=== PATIENT | male | born 1995 | race Caucasian/White ===

== ENCOUNTER 2017-04-06 19:11 | Inpatient (IN) | payer BC, OTHER ==
[~2017-04-06] VITALS: Ht 167.6 cm; Wt 81.6 kg
[2017-04-06] MEDS ORDERED: BUPRENORPHINE HCL 2 MG TAB.SUBL SL PRN (21:30)
[2017-04-06] MEDS ORDERED: diphenhydrAMINE 50 MG CAPSULE PO PRN (21:30)
[2017-04-06] MEDS ORDERED: CLONIDINE HCL 0.1 MG TABLET PO PRN (21:30)
[2017-04-06] MEDS ORDERED: MAGNESIUM HYDROXIDE 30 ML LIQUID UDC PO PRN (21:30)
[2017-04-06] MEDS ORDERED: ACETAMINOPHEN 325 MG TABLET PO PRN (21:30)
[2017-04-06] MEDS ORDERED: LORAZEPAM 2 MG/1 ML VIAL IM PRN (21:30)
[2017-04-06] MEDS ORDERED: LORAZEPAM 1 MG TABLET PO PRN ×2 (21:30)
[2017-04-06] MEDS ORDERED: DICYCLOMINE HCL 20 MG TABLET PO PRN (21:30)
[2017-04-06] MEDS ORDERED: MIRALAX 17 GM POWD.PACK PO PRN (21:30)
[2017-04-06] MEDS ORDERED: ONDANSETRON ODT 4 MG TAB.RAPDIS SL PRN (21:30)
[2017-04-06] MEDS ORDERED: LOPERAMIDE HCL 2 MG CAPSULE PO PRN (21:30)
[2017-04-06] MEDS ORDERED: MAG HYDROX/AL HYDROX/SIMETH 30 ML LIQUID UDC PO PRN (21:30)
[2017-04-06] MEDS ORDERED: ONDANSETRON 4 MG/2 ML VIAL IM PRN (21:30)
[2017-04-06 21:52] LABS: BASOPHILS # (AUTO) 0.1 K/uL (0.0-8.0); EOSINOPHILS # (AUTO) 0.3 K/uL (0.0-0.7); HEMATOCRIT 40.6 % (36.7-47.1); LYMPHOCYTES # (AUTO) 2.3 K/uL (20.0-40.0); MONOCYTES # (AUTO) 0.7 K/uL (2.0-10.0); NEUTROPHILS # (AUTO) 2.7 K/uL (1.8-8.9); RED BLOOD CELL COUNT(AUTO) 4.79 MIL/uL (4.06-5.63); WHITE BLOOD COUNT (AUTO) 6.1 K/uL (3.6-10.2)
[2017-04-06 21:56] LABS: BASOPHILS % (AUTO) 1.5 % (0.0-2.0); EOSINOPHILS % (AUTO) 5.3 % (0.0-7.0); LYMPHOCYTES % (AUTO) 37.9 % (20.5-51.5); MEAN CORPUSCULAR HEMOGLOBIN 29.3 uug (23.8-33.4); MEAN CORPUSCULAR HGB CONC 35 g/dL (32.5-36.3); MEAN CORPUSCULAR VOLUME 84.9 fL (73.0-96.2); NEUTROPHILS % (AUTO) 43.3 % (38.5-71.5); PLATELET COUNT (AUTO) 277 K/uL (152-348)
[2017-04-06 22:05] LABS: ETHANOL < 3 MG/DL (0-0)
[2017-04-06 22:08] LABS: *AMPHETAMINE, URINE NEGATIVE (NEGATIVE); *BARBITURATE, URINE NEGATIVE (NEGATIVE); *CANNABINOID, URINE POSITIVE (NEGATIVE); *COCCAINE, URINE NEGATIVE (NEGATIVE); *OPIATE, URINE POSITIVE (NEGATIVE); *PHENCYCLIDINE SCREEN,URINE NEGATIVE (NEGATIVE)
[2017-04-06 22:22] LABS: ALANINE AMINOTRANSFERASE 47 U/L (16-63); ALKALINE PHOSPHATASE 101 U/L (50-136); ASPARTATE AMINOTRANSFERASE 29 U/L (15-37); BILIRUBIN,TOTAL 0.4 mg/dL (0.2-1.0); CARBON DIOXIDE 28 mmol/L (21-32); CHLORIDE 102 mmol/L (98-107); CREATININE 0.9 mg/dL (0.6-1.3); GLUCOSE 91 mg/dL (74-106); MAGNESIUM 1.9 mg/dL (1.8-2.4); POTASSIUM 3.8 mmol/L (3.5-5.1); TOTAL PROTEIN, SERUM 7.2 g/dL (6.4-8.2); UREA NITROGEN, BLOOD 8 mg/dL (7-18)
[2017-04-06 22:25] LABS: BAND % (MANUAL) 3 % (0-10); EOSINOPHILS % (MANUAL) 6 % (0-8); MONOCYTES % (MANUAL) 10 % (2-10); NEUTROPHILS % (MANUAL) 44 % (42-75)
[2017-04-06 22:26] LABS: LYMPHOCYTES % (MANUAL) 37 % (20-40)
[2017-04-06] MEDS: IBUPROFEN 600 MG TABLET PO PRN (22:53)
[2017-04-06] MEDS: METHOCARBAMOL 750 MG TABLET PO PRN (22:53)
[2017-04-06] MEDS ORDERED: IBUPROFEN 600 MG TABLET ONE (23:01)
[2017-04-06] MEDS ORDERED: METHOCARBAMOL 750 MG TABLET ONE (23:02)
[2017-04-06] MEDS ORDERED: DICYCLOMINE HCL 20 MG TABLET ONE (23:09)
[2017-04-07] MEDS ORDERED: BUPRENORPHINE HCL 2 MG TAB.SUBL SL ONE (03:17)
[2017-04-07 09:00] VITALS: BP 100/58
[2017-04-07] MEDS ORDERED: TUBERCULIN,PURIF.PROT.DERIV. 5 TU/0.1 ML TEST ID ONE (09:00)
[2017-04-07] MEDS ORDERED: BUPRENORPHINE HCL 2 MG TAB.SUBL SL SCH (11:00)
[2017-04-07] MEDS: NEOMY/BACITRAC/POLYMI OINT 28.35 GM TUBE TOP SCH ×2 (11:00→17:00)
[2017-04-07 13:00] VITALS: BP 140/86
[2017-04-07] MEDS: BUPRENORPHINE HCL 2 MG TAB.SUBL SL SCH ×3 (13:15→20:30)
[2017-04-07 17:00] VITALS: BP 100/63
[2017-04-07 20:00] VITALS: BP 128/76
[2017-04-07] MEDS: METHOCARBAMOL 750 MG TABLET PO PRN (20:30)
[2017-04-07] MEDS: GABAPENTIN 300 MG CAPSULE PO SCH (20:30)
[2017-04-08] VITALS: BP 120/68
[2017-04-08 04:00] VITALS: BP 128/77
[2017-04-08 09:00] VITALS: BP 129/76
[2017-04-08] MEDS ORDERED: HYDROXYZINE PAMOATE 25 MG CAPSULE PO PRN (09:00)
[2017-04-08] MEDS ORDERED: BUPRENORPHINE HCL 2 MG TAB.SUBL SL SCH (09:00)
[2017-04-08] MEDS: GABAPENTIN 300 MG CAPSULE PO SCH ×3 (09:22→20:45)
[2017-04-08] MEDS: NEOMY/BACITRAC/POLYMI OINT 28.35 GM TUBE TOP SCH ×2 (09:22→17:00)
[2017-04-08] MEDS ORDERED: KETOROLAC TROMETHAMINE 30 MG INJ IM PRN (10:45)
[2017-04-08] MEDS: BUPRENORPHINE HCL 2 MG TAB.SUBL SL SCH ×2 (14:43→20:45)
[2017-04-08 15:39] VITALS: BP 129/65
[2017-04-08 17:50] VITALS: BP 123/60
[2017-04-08 20:00] VITALS: BP 128/65
[2017-04-08] MEDS: BACLOFEN 10 MG TABLET PO SCH (20:45)
[2017-04-08] MEDS: CLONIDINE HCL 0.1 MG TABLET PO SCH (20:45)
[2017-04-09] VITALS: BP 104/52
[2017-04-09 04:00] VITALS: BP 122/59
[2017-04-09 08:04] VITALS: BP 121/67
[2017-04-09 08:06] LABS: HEPATITIS B SURFACE AG Negative (Negative)
[2017-04-09] MEDS: GABAPENTIN 300 MG CAPSULE PO SCH ×2 (09:30→15:04)
[2017-04-09] MEDS: BACLOFEN 10 MG TABLET PO SCH (09:30)
[2017-04-09] MEDS: CLONIDINE HCL 0.1 MG TABLET PO SCH ×3 (09:30→20:36)
[2017-04-09] MEDS: BUPRENORPHINE HCL 2 MG TAB.SUBL SL SCH ×3 (09:31→20:42)
[2017-04-09] MEDS: NEOMY/BACITRAC/POLYMI OINT 28.35 GM TUBE TOP SCH ×2 (09:31→17:00)
[2017-04-09 12:14] VITALS: BP 127/66
[2017-04-09] MEDS: DICYCLOMINE HCL 20 MG TABLET PO SCH ×2 (15:04→20:36)
[2017-04-09] MEDS: BACLOFEN 20 MG TABLET PO SCH ×2 (15:05→20:36)
[2017-04-09 17:05] VITALS: BP 121/69
[2017-04-09 20:00] VITALS: BP 111/65
[2017-04-09] MEDS ORDERED: GABAPENTIN 300 MG CAPSULE PO SCH (21:00)
[2017-04-10] VITALS: BP 102/56
[2017-04-10 04:00] VITALS: BP 110/65
[2017-04-10 09:00] VITALS: BP 122/60
[2017-04-10] MEDS ORDERED: BUPRENORPHINE HCL 2 MG TAB.SUBL SL SCH (09:00)
[2017-04-10] MEDS: NEOMY/BACITRAC/POLYMI OINT 28.35 GM TUBE TOP SCH ×2 (09:34→17:00)
[2017-04-10] MEDS: CLONIDINE HCL 0.1 MG TABLET PO SCH ×2 (09:34→14:51)
[2017-04-10] MEDS: DICYCLOMINE HCL 20 MG TABLET PO SCH ×3 (09:35→21:38)
[2017-04-10] MEDS: BACLOFEN 20 MG TABLET PO SCH ×3 (09:35→21:37)
[2017-04-10] MEDS: LOPERAMIDE HCL 2 MG CAPSULE PO PRN ×3 (09:35→21:38)
[2017-04-10] MEDS: GABAPENTIN 300 MG CAPSULE PO SCH ×3 (09:35→21:37)
[2017-04-10 12:41] VITALS: BP 121/60
[2017-04-10] MEDS: BUPRENORPHINE HCL 2 MG TAB.SUBL SL SCH ×2 (14:52→21:38)
[2017-04-10 17:00] VITALS: BP 119/65
[2017-04-10 20:00] VITALS: BP 95/60
[2017-04-10] MEDS: CLONIDINE HCL 0.2 MG TABLET PO SCH (21:00)
[2017-04-10] MEDS: IBUPROFEN 600 MG TABLET PO PRN (21:38)
[2017-04-11] VITALS: BP 114/60
[2017-04-11 04:00] VITALS: BP 108/63
[2017-04-11 08:00] VITALS: BP 122/59
[2017-04-11] MEDS ORDERED: BUPRENORPHINE HCL 2 MG TAB.SUBL SL SCH (09:00)
[2017-04-11] MEDS: GABAPENTIN 300 MG CAPSULE PO SCH ×2 (09:45→16:32)
[2017-04-11] MEDS: BACLOFEN 20 MG TABLET PO SCH ×3 (09:45→21:28)
[2017-04-11] MEDS: DICYCLOMINE HCL 20 MG TABLET PO SCH ×3 (09:46→21:28)
[2017-04-11] MEDS: CLONIDINE HCL 0.1 MG TABLET PO SCH ×2 (09:46→16:33)
[2017-04-11] MEDS: NEOMY/BACITRAC/POLYMI OINT 28.35 GM TUBE TOP SCH ×2 (09:48→16:33)
[2017-04-11] MEDS ORDERED: LOPERAMIDE HCL 2 MG CAPSULE PO ONE (11:15)
[2017-04-11 12:00] VITALS: BP 125/55
[2017-04-11] MEDS ORDERED: PROMETHAZINE HCL 25 MG TABLET PO PRN (12:30)
[2017-04-11] MEDS: METHOCARBAMOL 750 MG TABLET PO PRN (12:37)
[2017-04-11] MEDS ORDERED: DICY20TA28 PO (15:02)
[2017-04-11] MEDS ORDERED: LOPE2CAP40 PO (15:02)
[2017-04-11] MEDS ORDERED: DIPH50CA37 PO (15:02)
[2017-04-11] MEDS ORDERED: HYDR-3895 PO (15:02)
[2017-04-11] MEDS ORDERED: ONDA4TAB11 SL (15:02)
[2017-04-11] MEDS ORDERED: METH-406 PO (15:02)
[2017-04-11] MEDS ORDERED: CLON0.1T14 PO (15:02)
[2017-04-11] MEDS ORDERED: GABA-534 PO ×2 (15:02)
[2017-04-11] MEDS ORDERED: IBUP-1955 PO (15:02)
[2017-04-11 16:00] VITALS: BP 105/51
[2017-04-11 20:00] VITALS: BP 113/63
[2017-04-11] MEDS ORDERED: GABAPENTIN 300 MG CAPSULE PO SCH (21:00)
[2017-04-11] MEDS: CLONIDINE HCL 0.2 MG TABLET PO SCH (21:28)
[2017-04-12 08:35] VITALS: BP 108/61
[2017-04-12] MEDS: BACLOFEN 20 MG TABLET PO SCH (08:52)
[2017-04-12] MEDS: DICYCLOMINE HCL 20 MG TABLET PO SCH (08:52)
[2017-04-12] MEDS: GABAPENTIN 300 MG CAPSULE PO SCH (08:52)
[2017-04-12 08:53] VITALS: BP 108/60
[2017-04-12] MEDS: CLONIDINE HCL 0.1 MG TABLET PO SCH (08:53)
[2017-04-12] MEDS: NEOMY/BACITRAC/POLYMI OINT 28.35 GM TUBE TOP SCH (08:55)
== END 2017-04-12 09:37 | disposition other institution (70) | DRG 895 ==
LOC: SRC 21:47
PROVIDERS: ADMIT Internal Medicine; ATTEND Internal Medicine
PROC: HZ2ZZZZ Detoxification Services for Substance Abuse Treatment (ICD-10-PCS; principal; 2017-04-06)
PROC: HZ31ZZZ Individual Counseling for Substance Abuse Treatment, Behavioral (ICD-10-PCS; 2017-04-09)
DX: F11.23 Opioid dependence with withdrawal (principal); F31.9 Bipolar disorder, unspecified; F10.21 Alcohol dependence, in remission; Z20.5 Contact with and (suspected) exposure to viral hepatitis; F15.10 Other stimulant abuse, uncomplicated; F12.10 Cannabis abuse, uncomplicated; F17.210 Nicotine dependence, cigarettes, uncomplicated; Z81.8 Family history of other mental and behavioral disorders; Z83.3 Family history of diabetes mellitus; Z82.49 Family history of ischemic heart disease and other diseases of the circulatory system; Z59.1 Inadequate housing; Z59.0 Homelessness; Z82.3 Family history of stroke; L08.9 Local infection of the skin and subcutaneous tissue, unspecified; F41.9 Anxiety disorder, unspecified
CPT/HCPCS: 36415; 80307; 80349; 80361; 83735; 85025; 86592; 86705; 86803; 87340; 87806; A4663; G0480; Q0162; Q0163; Q0169